=== PATIENT | female | born 1960 | race Caucasian/White ===

== ENCOUNTER 2016-06-09 20:08 | Inpatient (IN) | payer MEDICARE, MEDICAID ==
[2016-06-09] MEDS ORDERED: WELLBUTRIN SR150 M2 PO ×2 (22:59→23:03)
[2016-06-09 23:03] LABS: BASO % 0.2 % (0-2); HCT-HEMATOCRIT 30.1 % (34.0-49.0); HGB-HEMOGLOBIN 9.7 gm/dl (12.0-15.5); IMMATURE GRANULOCYTES ABSOLUTE 0.01 tho/cmm (0-0.03); IMMATURE GRANULOCYTES PERCENT 0.2 % (0-0.3); LYMPH % 8.6 % (20-45); LYMPH ABSOLUTE COUNT 0.5 tho/cmm (0.8-4.5); MCH (MEAN CORPUSCULAR HGB) 26.3 pg (28.0-32.0); MCHC MEAN CORPUSCULAR HGB CONC 32.2 % (32.0-36.0); MCV (MEAN CELL VOLUME) 81.6 fl (82.0-96.0); MEAN PLATELET VOLUME 10.6 cmc (9.4-12.4); MONO % 5.5 % (0-12); MONOCYTE ABSOLUTE COUNT 0.3 tho/cmm (0.0-1.2); NEUTROPHIL ABSOLUTE COUNT 4.9 tho/cmm (1.6-8.0); NEUTROPHIL-AUTOMATED 4.9 tho/cmm (1.6-8.0); NEUTROPHILS % 85.5 % (40-80); PLATELET COUNT 76 tho/cmm (150-450); RED BLOOD COUNT 3.69 mil/cmm (4.00-5.20); RED CELL DISTRIBUTION WIDTH 14.7 % (12.4-16.4); WHITE BLOOD COUNT 5.7 tho/cmm (4.0-10.0)
[2016-06-09 23:06] LABS: INR 1.2 INR (0.9-1.1); PROTHROMBIN TIME 13.9 SECONDS (9.0-13.6)
[2016-06-09] MEDS ORDERED: PROAIR HFA8.5 GM INH (23:07)
[2016-06-09] MEDS ORDERED: CARVEDILOL6.25 M1 PO (23:08)
[2016-06-09] MEDS ORDERED: VALIUM5 M1 PO (23:09)
[2016-06-09] MEDS ORDERED: OMEPRAZOLE40 M2 PO (23:09)
[2016-06-09] MEDS ORDERED: HYDROCHLOROTH12.5 M3 PO (23:10)
[2016-06-09] MEDS ORDERED: LANTUS100 UNITS/ SC ×2 (23:12→23:13)
[2016-06-09] MEDS ORDERED: HUMALOG100 UNITS/ SC (23:14)
[2016-06-09] MEDS ORDERED: TRADJENTA5 M1 PO (23:15)
[2016-06-09] MEDS ORDERED: SYNTHROID125 MC1 PO (23:15)
[2016-06-09] MEDS ORDERED: LISINOPRIL2.5 M1 PO (23:15)
[2016-06-09] MEDS ORDERED: ONDANSETRON HCL8 M1 PO (23:16)
[2016-06-09] MEDS ORDERED: PLAVIX75 M1 PO (23:18)
[2016-06-09] MEDS ORDERED: SEROQUEL400 M1 PO (23:20)
[2016-06-09] MEDS ORDERED: ZOCOR40 M1 PO (23:21)
[2016-06-09 23:24] LABS: KETONE-BETA (WHOLE BLOOD) 0.1 mmol/L (0.0-0.6)
[2016-06-09 23:39] LABS: MAGNESIUM 1.1 mg/dl (1.8-2.6); PHOSPHOROUS 1.9 mg/dl (2.5-4.9)
[2016-06-09 23:40] LABS: ANION GAP 15 mmol/L (0-20); CARBON DIOXIDE-VENOUS 22 mmol/L (22-32); CHLORIDE 99 mmol/l (96-110); POTASSIUM 4.2 mmol/L (3.7-5.1); SODIUM 132 mmol/L (135-145)
[2016-06-09 23:44] LABS: ALBUMIN 2.4 g/dl (3.5-5.0); BLOOD UREA NITROGEN 26 mg/dl (6-24); CALCIUM 7.7 mg/dl (8.5-10.5); CREATININE 1.97 mg/dl (0.50-1.10); eGFR VALUE FOR BLACK 32 mL/Min
[2016-06-09 23:45] LABS: ALB/GLOB RATIO 0.5 (0.8-2.0); BILIRUBIN,TOTAL 0.8 mg/dl (0-1.5)
[2016-06-09 23:46] LABS: ALKALINE PHOSPHATASE 82 U/L (33-138); ALT/SGPT 23 U/L (12-78); AST/SGOT 21 U/L (10-40)
[2016-06-09 23:51] LABS: PROCALCITONIN 30.54 ng/ml (0.05-0.09)
[2016-06-09 23:58] LABS: GLUCOSE 493 mg/dL (70-110)
[2016-06-10 00:07] LABS: OSMOLALITY 300 mOsm/kg (275-295)
[2016-06-10] MEDS ORDERED: BUPROPION HCL75 M1 PO (00:09)
[2016-06-10 02:36] LABS: ANION GAP 18 mmol/L (0-20); BLOOD UREA NITROGEN 26 mg/dl (6-24); CALCIUM 7.9 mg/dl (8.5-10.5); CARBON DIOXIDE-VENOUS 19 mmol/L (22-32); CHLORIDE 101 mmol/l (96-110); CREATININE 1.95 mg/dl (0.50-1.10); GLUCOSE 415 mg/dL (70-110); POTASSIUM 3.8 mmol/L (3.7-5.1); SODIUM 134 mmol/L (135-145); eGFR VALUE FOR BLACK 32 mL/Min
[2016-06-10 06:34] LABS: EOS % 0.2 % (0-7); HCT-HEMATOCRIT 27.4 % (34.0-49.0); IMMATURE GRANULOCYTES ABSOLUTE 0.05 tho/cmm (0-0.03); IMMATURE GRANULOCYTES PERCENT 0.9 % (0-0.3); LYMPH % 9.1 % (20-45); LYMPH ABSOLUTE COUNT 0.5 tho/cmm (0.8-4.5); MCH (MEAN CORPUSCULAR HGB) 26.5 pg (28.0-32.0); MCHC MEAN CORPUSCULAR HGB CONC 32.8 % (32.0-36.0); MCV (MEAN CELL VOLUME) 80.6 fl (82.0-96.0); MEAN PLATELET VOLUME 10.4 cmc (9.4-12.4); MONOCYTE ABSOLUTE COUNT 0.6 tho/cmm (0.0-1.2); NEUTROPHIL ABSOLUTE COUNT 4.6 tho/cmm (1.6-8.0); NEUTROPHIL-AUTOMATED 4.6 tho/cmm (1.6-8.0); NEUTROPHILS % 78.8 % (40-80); PLATELET COUNT 67 tho/cmm (150-450); RED CELL DISTRIBUTION WIDTH 14.9 % (12.4-16.4); WHITE BLOOD COUNT 5.8 tho/cmm (4.0-10.0)
[2016-06-10 06:45] LABS: ANION GAP 15 mmol/L (0-20); BLOOD UREA NITROGEN 26 mg/dl (6-24); CALCIUM 7.6 mg/dl (8.5-10.5); CARBON DIOXIDE-VENOUS 22 mmol/L (22-32); CHLORIDE 105 mmol/l (96-110); CREATININE 1.91 mg/dl (0.50-1.10); GLUCOSE 238 mg/dL (70-110); POTASSIUM 3.8 mmol/L (3.7-5.1); SODIUM 138 mmol/L (135-145); eGFR VALUE FOR BLACK 33 mL/Min
[2016-06-10 11:53] LABS: ANION GAP 13 mmol/L (0-20); BLOOD UREA NITROGEN 28 mg/dl (6-24); CALCIUM 7.6 mg/dl (8.5-10.5); CARBON DIOXIDE-VENOUS 23 mmol/L (22-32); CHLORIDE 106 mmol/l (96-110); CREATININE 1.72 mg/dl (0.50-1.10); SODIUM 138 mmol/L (135-145); eGFR VALUE FOR BLACK 37 mL/Min
[2016-06-10 11:55] LABS: GLUCOSE 117 mg/dL (70-110)
[2016-06-10] MEDS ORDERED: HUMALOG100 UNITS/ SC (11:56)
[2016-06-10] MEDS ORDERED: TRESIBA FL100 UNIT/1 SC (11:56)
[2016-06-10] MEDS ORDERED: HUMALOG100 UNITS/ PO (11:56)
[2016-06-10 12:02] LABS: MAGNESIUM 1.7 mg/dl (1.8-2.6); PHOSPHOROUS 1.3 mg/dl (2.5-4.9)
[2016-06-10 15:56] LABS: ANION GAP 15 mmol/L (0-20); BLOOD UREA NITROGEN 29 mg/dl (6-24); CALCIUM 7.5 mg/dl (8.5-10.5); CARBON DIOXIDE-VENOUS 20 mmol/L (22-32); CHLORIDE 104 mmol/l (96-110); CREATININE 1.84 mg/dl (0.50-1.10); POTASSIUM 3.9 mmol/L (3.7-5.1); SODIUM 135 mmol/L (135-145); eGFR VALUE FOR BLACK 34 mL/Min
[2016-06-10 15:58] LABS: GLUCOSE 202 mg/dL (70-110)
[2016-06-10 22:44] LABS: ANION GAP 14 mmol/L (0-20); BLOOD UREA NITROGEN 28 mg/dl (6-24); CALCIUM 7.3 mg/dl (8.5-10.5); CARBON DIOXIDE-VENOUS 21 mmol/L (22-32); CHLORIDE 104 mmol/l (96-110); CREATININE 1.88 mg/dl (0.50-1.10); GLUCOSE 237 mg/dL (70-110); POTASSIUM 3.9 mmol/L (3.7-5.1); SODIUM 135 mmol/L (135-145); eGFR VALUE FOR BLACK 34 mL/Min
[2016-06-10 22:50] LABS: MAGNESIUM 1.9 mg/dl (1.8-2.6); PHOSPHOROUS 1.4 mg/dl (2.5-4.9)
[2016-06-11 02:16] LABS: ANION GAP 14 mmol/L (0-20); BLOOD UREA NITROGEN 28 mg/dl (6-24); CALCIUM 7.5 mg/dl (8.5-10.5); CARBON DIOXIDE-VENOUS 20 mmol/L (22-32); CHLORIDE 106 mmol/l (96-110); GLUCOSE 194 mg/dL (70-110); POTASSIUM 4.2 mmol/L (3.7-5.1); SODIUM 136 mmol/L (135-145); eGFR VALUE FOR BLACK 33 mL/Min
[2016-06-11 05:37] LABS: BASO % 0.2 % (0-2); EOS % 0.8 % (0-7); EOSINOPHIL ABSOLUTE COUNT 0.1 tho/cmm (0.0-0.7); HCT-HEMATOCRIT 29.3 % (34.0-49.0); LYMPH % 8.6 % (20-45); LYMPH ABSOLUTE COUNT 0.5 tho/cmm (0.8-4.5); MCH (MEAN CORPUSCULAR HGB) 25.3 pg (28.0-32.0); MCV (MEAN CELL VOLUME) 82.3 fl (82.0-96.0); MEAN PLATELET VOLUME 12.1 cmc (9.4-12.4); MONO % 10.6 % (0-12); MONOCYTE ABSOLUTE COUNT 0.7 tho/cmm (0.0-1.2); NEUTROPHILS % 79.8 % (40-80); PLATELET COUNT 86 tho/cmm (150-450); RED BLOOD COUNT 3.56 mil/cmm (4.00-5.20); RED CELL DISTRIBUTION WIDTH 15.2 % (12.4-16.4); WHITE BLOOD COUNT 6.3 tho/cmm (4.0-10.0)
[2016-06-11 05:41] LABS: MCHC MEAN CORPUSCULAR HGB CONC 30.7 % (32.0-36.0)
[2016-06-11 05:51] LABS: ALBUMIN 1.9 g/dl (3.5-5.0); ANION GAP 16 mmol/L (0-20); BLOOD UREA NITROGEN 27 mg/dl (6-24); CALCIUM 7.6 mg/dl (8.5-10.5); CARBON DIOXIDE-VENOUS 18 mmol/L (22-32); CHLORIDE 104 mmol/l (96-110); CREATININE 1.85 mg/dl (0.50-1.10); GLUCOSE 172 mg/dL (70-110); PHOSPHOROUS 1.3 mg/dl (2.5-4.9); SODIUM 134 mmol/L (135-145); eGFR VALUE FOR BLACK 34 mL/Min
[2016-06-12 06:07] LABS: BASO % 0.2 % (0-2); EOSINOPHIL ABSOLUTE COUNT 0.1 tho/cmm (0.0-0.7); HCT-HEMATOCRIT 29.1 % (34.0-49.0); HGB-HEMOGLOBIN 9.4 gm/dl (12.0-15.5); IMMATURE GRANULOCYTES ABSOLUTE 0.02 tho/cmm (0-0.03); IMMATURE GRANULOCYTES PERCENT 0.4 % (0-0.3); LYMPH % 10.5 % (20-45); LYMPH ABSOLUTE COUNT 0.6 tho/cmm (0.8-4.5); MCH (MEAN CORPUSCULAR HGB) 25.9 pg (28.0-32.0); MCHC MEAN CORPUSCULAR HGB CONC 32.3 % (32.0-36.0); MCV (MEAN CELL VOLUME) 80.2 fl (82.0-96.0); MEAN PLATELET VOLUME 11.1 cmc (9.4-12.4); MONO % 13.3 % (0-12); MONOCYTE ABSOLUTE COUNT 0.8 tho/cmm (0.0-1.2); NEUTROPHIL ABSOLUTE COUNT 4.1 tho/cmm (1.6-8.0); NEUTROPHIL-AUTOMATED 4.1 tho/cmm (1.6-8.0); NEUTROPHILS % 73.6 % (40-80); PLATELET COUNT 83 tho/cmm (150-450); RED BLOOD COUNT 3.63 mil/cmm (4.00-5.20); RED CELL DISTRIBUTION WIDTH 15.4 % (12.4-16.4); WHITE BLOOD COUNT 5.6 tho/cmm (4.0-10.0)
[2016-06-12 06:16] LABS: ANION GAP 15 mmol/L (0-20); BLOOD UREA NITROGEN 21 mg/dl (6-24); CALCIUM 7.7 mg/dl (8.5-10.5); CARBON DIOXIDE-VENOUS 19 mmol/L (22-32); CHLORIDE 107 mmol/l (96-110); CREATININE 1.65 mg/dl (0.50-1.10); GLUCOSE 92 mg/dL (70-110); POTASSIUM 3.6 mmol/L (3.7-5.1); SODIUM 137 mmol/L (135-145); eGFR VALUE FOR BLACK 39 mL/Min
[2016-06-13 05:14] LABS: BASO % 0.4 % (0-2); EOS % 2.4 % (0-7); EOSINOPHIL ABSOLUTE COUNT 0.1 tho/cmm (0.0-0.7); HCT-HEMATOCRIT 28.3 % (34.0-49.0); HGB-HEMOGLOBIN 9.3 gm/dl (12.0-15.5); IMMATURE GRANULOCYTES ABSOLUTE 0.04 tho/cmm (0-0.03); IMMATURE GRANULOCYTES PERCENT 0.8 % (0-0.3); LYMPH % 11.8 % (20-45); LYMPH ABSOLUTE COUNT 0.6 tho/cmm (0.8-4.5); MCH (MEAN CORPUSCULAR HGB) 26.3 pg (28.0-32.0); MCHC MEAN CORPUSCULAR HGB CONC 32.9 % (32.0-36.0); MCV (MEAN CELL VOLUME) 79.9 fl (82.0-96.0); MEAN PLATELET VOLUME 10.9 cmc (9.4-12.4); MONO % 15.1 % (0-12); MONOCYTE ABSOLUTE COUNT 0.8 tho/cmm (0.0-1.2); NEUTROPHIL ABSOLUTE COUNT 3.5 tho/cmm (1.6-8.0); NEUTROPHIL-AUTOMATED 3.5 tho/cmm (1.6-8.0); NEUTROPHILS % 69.5 % (40-80); PLATELET COUNT 95 tho/cmm (150-450); RED BLOOD COUNT 3.54 mil/cmm (4.00-5.20); RED CELL DISTRIBUTION WIDTH 15.5 % (12.4-16.4); WHITE BLOOD COUNT 5.1 tho/cmm (4.0-10.0)
[2016-06-13 05:24] LABS: ANION GAP 13 mmol/L (0-20); BLOOD UREA NITROGEN 22 mg/dl (6-24); CARBON DIOXIDE-VENOUS 21 mmol/L (22-32); CHLORIDE 108 mmol/l (96-110); CREATININE 1.56 mg/dl (0.50-1.10); GLUCOSE 80 mg/dL (70-110); MAGNESIUM 1.5 mg/dl (1.8-2.6); PHOSPHOROUS 2.1 mg/dl (2.5-4.9); POTASSIUM 3.9 mmol/L (3.7-5.1); SODIUM 138 mmol/L (135-145); eGFR VALUE FOR BLACK 42 mL/Min
[2016-06-13] MEDS ORDERED: AUGMENTIN 500-1 EAC2 PO (09:52)
[2016-06-13] MEDS ORDERED: LEVEMIR100 UNITS/ SC (09:57)
[2016-06-13] MEDS ORDERED: TRADJENTA5 M1 PO (14:34)
[2016-06-13] MEDS ORDERED: HUMALOG100 UNITS/ SC ×3 (14:36→14:38)
[2016-06-13] MEDS ORDERED: TRESIBA FL100 UNIT/1 SC (14:38)
== END 2016-06-13 16:00 | DRG 871 ==
LOC: PCUB 20:08
PROVIDERS: Family Medicine; ADMIT Hospitalist
PROC: 02HV33Z Insertion of Infusion Device into Superior Vena Cava, Percutaneous Approach (ICD-10-PCS; principal; 2016-06-10)
PROC: B548ZZA Ultrasonography of Superior Vena Cava, Guidance (ICD-10-PCS; 2016-06-10)
DX: A41.9 Sepsis, unspecified organism (principal); E11.00 Type 2 diabetes mellitus with hyperosmolarity without nonketotic hyperglycemic-hyperosmolar coma (NKHHC); N17.9 Acute kidney failure, unspecified; D69.6 Thrombocytopenia, unspecified; E11.40 Type 2 diabetes mellitus with diabetic neuropathy, unspecified; K31.84 Gastroparesis; E11.43 Type 2 diabetes mellitus with diabetic autonomic (poly)neuropathy; N39.0 Urinary tract infection, site not specified; I12.9 Hypertensive chronic kidney disease with stage 1 through stage 4 chronic kidney disease, or unspecified chronic kidney disease; N18.9 Chronic kidney disease, unspecified; E83.39 Other disorders of phosphorus metabolism; E83.42 Hypomagnesemia; F32.9 Major depressive disorder, single episode, unspecified; E78.5 Hyperlipidemia, unspecified; E03.9 Hypothyroidism, unspecified; E11.65 Type 2 diabetes mellitus with hyperglycemia; R65.20 Severe sepsis without septic shock; Z86.73 Personal history of transient ischemic attack (TIA), and cerebral infarction without residual deficits; Z79.4 Long term (current) use of insulin
CPT/HCPCS: C1751; J1650; J1815; J2405; J2543; J2550; J3475; J3480; J7030; J7050